=== PATIENT | male | born 2000 | race Caucasian/White ===

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

== ENCOUNTER 2019-06-20 11:01 | Emergency (ER) | payer MEDICAID ==
[~2019-06-20] VITALS: Ht 167.6 cm; Wt 100.0 kg
[2019-06-20 12:13] LABS: BASOPHILS % (AUTO) 0.7 % (0.0-2.0); HEMATOCRIT 45.4 % (41-53); HEMOGLOBIN 15.7 g/dL (13.5-17.5); LYMPHOCYTES # (AUTO) 2.5 K/uL (1.0-4.8); LYMPHOCYTES % (AUTO) 32.3 % (22.0-44.0); MEAN CORPUSCULAR HEMOGLOBIN 29.2 pg (26.0-34.0); MEAN CORPUSCULAR HGB CONC 34.6 G/dL (31.0-37.0); MEAN CORPUSCULAR VOLUME 84 fL (80-100); MONOCYTES # (AUTO) 0.5 K/uL (0.1-1.0); MONOCYTES % (AUTO) 6.2 % (2.0-9.0); NEUTROPHILS # (AUTO) 4.6 K/uL (1.8-7.7); NEUTROPHILS % (AUTO) 58.8 % (40.0-70.0); PLATELET COUNT (AUTO) 321 K/uL (150-450); RED BLOOD CELL COUNT(AUTO) 5.39 MIL/uL (4.50-5.90); RED CELL DISTRIBUTION WIDTH 13.5 % (11.5-14.5)
[2019-06-20 12:23] LABS: ANION GAP 7 mmol/L (8-16); CALCIUM, TOTAL 9.4 mg/dL (8.8-10.5); CARBON DIOXIDE 29 mmol/L (22-29); CHLORIDE 104 mmol/L (98-107); CREATININE 0.88 mg/dL (0.60-1.30); GLOMERULAR FILTR. RATE CALC > 60 mL/min (>60); GLUCOSE,RANDOM 97 mg/dL (70-110); POTASSIUM 4.2 mmol/L (3.5-5.1); SODIUM SERUM 140 mmol/L (136-145); UREA NITROGEN, BLOOD 12 mg/dL (7-18)
[2019-06-20 12:31] LABS: ALANINE AMINOTRANSFERASE 51 U/L (12-78); ALBUMIN 3.7 g/dL (3.4-5.0); ALKALINE PHOSPHATASE 83 U/L (46-116); ASPARTATE AMINOTRANSFERASE 20 U/L (15-37); BILIRUBIN,TOTAL 0.9 mg/dL (0.1-1.0); LIPASE 74 U/L (73-393); TOTAL PROTEIN, SERUM 7.4 g/dL (6.4-8.2)
[2019-06-20 14:00] VITALS: BP 122/86
[2019-06-20] MEDS ORDERED: SODIUM PHOS/SODIUM BIPHOS 133 ML ENEMA PR ONE (14:30)
== END 2019-06-20 14:45 | disposition home or self-care (01) ==
LOC: EMS 11:02
DX: K59.00 Constipation, unspecified (principal); F41.9 Anxiety disorder, unspecified
CPT/HCPCS: 74019

== ENCOUNTER 2020-02-26 12:54 | Emergency (ER) | payer MEDICAID, OTHER ==
[~2020-02-26] VITALS: Ht 167.6 cm; Wt 135.0 kg
[2020-02-26 13:11] VITALS: BP 141/85
[2020-02-26] MEDS ORDERED: LIDOCAINE 5% TRANSDERMAL PATCH TD ONE (13:30)
[2020-02-26] MEDS ORDERED: IBUPROFEN 600 MG TABLET PO ONE (13:30)
[2020-02-26] MEDS ORDERED: METHOCARBAMOL 500 MG TABLET PO ONE (13:30)
== END 2020-02-26 14:18 | disposition home or self-care (01) ==
LOC: EMS 13:01
DX: M54.6 Pain in thoracic spine (principal); R03.0 Elevated blood-pressure reading, without diagnosis of hypertension; F41.9 Anxiety disorder, unspecified
CPT/HCPCS: Z7502; Z7610

== ENCOUNTER 2023-05-09 12:49 | Emergency (ER) | payer OTHER ==
[~2023-05-09] VITALS: Ht 167.6 cm; Wt 154.6 kg
[2023-05-09 12:51] VITALS: TEMP 98.3
[2023-05-09] MEDS ORDERED: KETOROLAC TROMETHAMINE 30 MG/ML VIAL IM ONE (14:45)
[2023-05-09] MEDS ORDERED: LIDOCAINE 5% TRANSDERMAL PATCH TD ONE (14:45)
[2023-05-09 15:47] VITALS: BP 143/83; PULSE 95; RESP 20
== END 2023-05-09 15:55 | disposition home or self-care (01) ==
LOC: EMS 12:49
DX: S39.012A Strain of muscle, fascia and tendon of lower back, initial encounter (principal); F41.9 Anxiety disorder, unspecified; Z98.890 Other specified postprocedural states; X50.0XXA Overexertion from strenuous movement or load, initial encounter; Y93.89 Activity, other specified; Y92.89 Other specified places as the place of occurrence of the external cause; Y99.8 Other external cause status
CPT/HCPCS: 99283; 96372; J1885